=== PATIENT | female | born 1940 | race African-American/Black ===

== ENCOUNTER 2020-02-26 01:45 | Outpatient (CLI) | payer MEDICARE, SELFPAY ==
[2020-02-26 19:19] LABS: SARS-CoV-2 RNA PCR Negative
== END 2020-02-26 01:46 | disposition home or self-care (01) ==
PROVIDERS: PCP Internal Medicine Infectious Disease; Visit Provider Urology
DX: Z01.812 Encounter for preprocedural laboratory examination (principal); Z20.828 Contact with and (suspected) exposure to other viral communicable diseases
CPT/HCPCS: 87635; C9803; U0003

== ENCOUNTER 2020-02-26 09:00 | Outpatient (CLI) | payer MEDICARE, SELFPAY ==
--- NOTE | 2020-02-26 08:30 | ECG_ITS ---
Measurements Intervals [place] Rate: 68 P: 30 MN: 167 QRS: 5 QRSD: 75 T: -14 QT: 391 QTc: 417 Interpretive Statements SINUS RHYTHM DELAYED PRECORDIAL R/S TRANSITION BORDERLINE ST-T WAVE ABNORMALITY- ANTEROLAT/INF LEADS BORDERLINE ECG Electronically Signed On 02-26-2020 9:45:12 CDT by Seb Ramirez D.O.
== END 2020-02-26 09:01 | disposition home or self-care (01) ==
LOC: ANHSURGERY 09:13
PROVIDERS: PCP Internal Medicine Infectious Disease; Visit Provider Urology
DX: Z01.812 Encounter for preprocedural laboratory examination (principal); Z01.810 Encounter for preprocedural cardiovascular examination; I25.10 Atherosclerotic heart disease of native coronary artery without angina pectoris; R94.31 Abnormal electrocardiogram [ECG] [EKG]
CPT/HCPCS: 87086; 87635; 93005; C9803; U0003

== ENCOUNTER 2020-02-28 00:12 | Day surgery (SDC) | payer MEDICARE, SELFPAY ==
--- NOTE | 2020-02-22 11:27 | P.HP_ITS ---
H&P: HPI History of Present Illness Date/Time: 02/22/20 11:27 Chief complaint: Cystocele Narrative: Chata Matias is a 79 year old female with a cystocele and SWETA Review of Systems Review of Systems: All systems reviewed & are unremarkable except as noted in HPI and below [facility] Social History Social History Smoking status: Never smoker Alcohol intake: never Meds Home Medications and Allergies Allergies Allergy/AdvReac Type Severity Reaction Status Date / Time NACOTICS Allergy Mild NAUSEA AND Uncoded 01/28/05 09:59 VOMITING OPIATEAGONISTS Allergy Unknown NAUSEA & Uncoded 09/03/08 13:41 VOMITING Exam Const: General: no acute distress HENMT: Mouth: Yes moist mucous membranes Eyes: General: appearance normal, both eyes and all related structures Neck: Neck: supple Resp: Effort & Inspection: normal respiratory effort GI: GI Palp: Yes Soft to palpation : Other: cystocele to introitus Skin: General skin exam: no rashes or lesions noted Neuro: Speech: normal speech Extrem: General: normal to inspection Psych: Mental Status: mental status grossly normal Assessment and Plan Assessment and plan (1) Cystocele: Status: Acute Assessment and Plan: cystocele repair (2) SWETA (stress urinary incontinence, female): Code(s): N39.3 - Stress incontinence (female) (male) Status: Acute Assessment and Plan: urethral sling
[2020-02-25 15:26] VITALS: BMI 39.0
--- NOTE | 2020-02-27 10:51 | WPDANESEPPF ---
Anes - Initial Pre Proc Eval Procedure: Operation Date: 02/28/20 11:00 Proposed Procedures p Cystocele Repair - Inder Morris MD s Urethral Sling - Inder Morris MD Date/Time: 02/27/20 10:51 Surgeon: Inder Morris MD Pre Op Diagnosis: Cystocele Patient Data Age: 79 Gender: F Height: 1.6 m Weight: 100 kg Allergies Allergy/AdvReac Type Severity Reaction Status Date / Time No Known Allergies Allergy Verified 02/25/20 15:20 Home Medications Medication Instructions Recorded Confirmed Type acetaminophen-codeine 1 tablet PO BID PRN 02/25/20 02/28/20 History metoprolol tartrate 25 mg PO QAM 02/25/20 02/28/20 History pantoprazole 40 mg PO QAM 02/25/20 02/28/20 History Patient hx anesthesia problems: none Family hx anesthesia problems: none [facility] Past Medical History Medical History (Updated 02/27/20 @ 10:51 by Faizan Gomez DO) GERD (gastroesophageal reflux disease) Osteoarthritis Surgical History Surgical History (Updated 02/27/20 @ 10:51 by Faizan Gomez DO) History of hysterectomy Social History Social History Smoking status: Never smoker Second hand tobacco smoke exposure: No Alcohol intake: current Drinks per week: 7 Alcohol use details: 1/2 GLASS WINE NIGHTLY Substance use: never Living arrangements: with family Spiritual care concerns: No Anes - Eval Final PreProcedure Day of Procedure 02/27/20 10:51 Patient weight: obese Heart: regular rate and rhythm Lungs: clear to auscultation and normal air movement Airway: Mallampati scale class III Neurological: alert and oriented Last oral intake: >/= 8 hours ASA classification: III Emergent: no Anesthetic plan: proceed Anesthesia type and monitoring: general LMA and standard monitoring Informed Consent: The patient's anesthetic plan and its attendant risks and benefits were discussed with the patient/family/POA. Questions were solicited and answers provided to the satisfaction of the patient/family/POA.
--- NOTE | 2020-02-28 07:28 | WPDHPUPDATE1 ---
History and Physical Update Update Date/Time: 02/28/20 07:28 History and Physical has been reviewed, including an updated exam of the patient. There are NO changes in the patient's condition. Risks, benefits, and alternatives have been discussed and questions answered. Patient agrees to proceed with procedure.
[2020-02-28 08:38] VITALS: BP 169/83; PULSE 67; RESP 16; TEMP 36.4; O2SAT 99
[2020-02-28] MEDS: LACTATED RINGERS 1,000 ML 30 ML IV CONT (08:54)
--- NOTE | 2020-02-28 10:53 | SUR.PREOP ---
Patient and Dr Morris agreed that she doesn't need surgery. Discharged home.
--- NOTE | 2020-03-08 15:33 | PM.PROC ---
Procedure Note - Detailed Date of procedure: 03/08/20 Pre-op diagnosis: Cystocele Procedure performed: surgery canceld per pt request Surgeon: Inder Morris MD
== END 2020-02-28 10:55 | disposition home or self-care (01) ==
PROVIDERS: PCP Internal Medicine Infectious Disease; Visit Provider Urology
PROC: (CPT 57240; principal; 2020-02-28 11:00)
DX: N81.10 Cystocele, unspecified (principal); N39.3 Stress incontinence (female) (male); Z53.9 Procedure and treatment not carried out, unspecified reason
CPT/HCPCS: A9270; J2250; J3010; J7120

== ENCOUNTER 2024-08-09 14:56 | Outpatient (CLI) | payer MEDICARE, SELFPAY ==
--- OUTSIDE RECORDS SUMMARY | 2024-08-09 15:10 | XMS_ITS | Referral Summary ---
Author Organization [facility] Address [facility] [place] [address] Care Team Providers Care Android Programmer Name Role Phone Wilfrid Mulligan MD Primary Care Provider Mallory Mosher MD Unavailable [phone] Cara Nazario MD Unavailable [phone] Juan Morris MD Unavailable Encounters Date Type Department Care Team Description 07/12/2024 1:45 PM MOVE COORDINATOR Office Visit [facility] [address] [place] [address] Wilfrid Mulligan MD Upper respiratory tract infection, unspecified type (Primary Dx); Essential hypertension; Urinary incontinence, unspecified type; Influenza A 07/10/2024 Telephone [facility] Medical [facility] [address] [place] [address] Wilfrid Mulligan MD Side of face from Last 3 Months Allergies Active Allergy Reactions Criticality Noted Date Comments Influenza Virus Vaccines Other (See comments) Low 06/30/2017 Pt states developed Nausea and Fever. Medications VITAMIN B COMPLEX (B COMPLEX-VITAMIN B12 ORAL) Take 1,000 mcg/day by mouth every other day Active VITAMIN E ACETATE (VITAMIN E ORAL) Take 400 Int'l Units by mouth every other day Active CALCIUM CARBONATE (CALCIUM 600 ORAL) Take 600 mg by mouth every other day Active potassium 99 mg tablet Take 1 tablet (99 mg total) by mouth every other day Active pantoprazole DR (PROTONIX) 40 mg EC tablet Take 1 tablet (40 mg total) by mouth daily 90 tablet 4 05/01/20 25 Active metoprolol XL (TOPROL-XL) 25 mg extended release tablet Take 1 tablet (25 mg total) by mouth daily 90 tablet 4 Active guaiFENesin ER (MUCINEX) 600 mg 12 hr tablet Take 1 tablet (600 mg total) by mouth 2 (two) times a day 60 tablet 4 Active acetaminophen-co deine (TYLENOL with CODEINE #3) 300-30 mg per tabletIndication s:Pain Take 1 tablet by mouth every 6 (six) hours as needed for pain 30 tablet 4 Active azelastine (ASTELIN) 137 mcg (0.1 %) nasal sprayIndications :Upper respiratory tract infection, unspecified type Administer 1 spray into each nostril 2 (two) times a day Use in each nostril as directed 30 mL 5 Active oseltamivir (TAMIFLU) 75 mg capsule Take 1 capsule (75 mg total) by mouth 2 (two) times a day for 5 days 10 capsule 5 07/17/19 25 Active Problems Problem Noted Date Diagnosed Date Influenza A 07/12/2024 Assessment & Plan (07/12/2024 12:34 PM MOVE COORDINATOR): POSITIVE FOR FLU A TODAY DID NOT GET THE VACCINE TAMIFLU 75 MG PO BID FOR FIVE DAYS CONTINUE MUCINEX AND PERLES PRN Chronic fatigue 03/25/2024 Assessment & Plan (03/25/2024 12:00 PM MOVE COORDINATOR): H/O ANEMIA BUT CBC IS NL HB OF 12 ARRANGE B12 / TSH AND VIT D LEVELS Melena 05/05/2022 Assessment & Plan (05/06/2022 4:28 PM MOVE COORDINATOR): Intermittently over the last 3 days. No acute findings on exam but seracult was positive. Will check CBC. Increase Pantoprazole to BID. REFER to GI for further evaluation. Low acid diet, stay hydrated. Call or go to ER with any changes. Keep follow as scheduled in september, sooner if needed. Cystocele, midline 09/02/2020 Encounter for Medicare annual wellness exam 11/2018 Assessment & Plan (10/19/2023 7:22 PM CDT): IMMUNIZATIONS WERE REVIEWED H/O CAD : ON BABY ASA PLUS BETA NAKUL GERD WITH H/O GI BLEED ON PROTONIX 40 MGP O QDAY OA OF THE BACK AND KNEES ON TYLENOL WITH CODIENE LABS WERE REVIEWED ESSENTIAL HYPERTENSION : GOAL IS 130/80 OR LESS LOW NA DIET CONTINUE BETA NAKUL Gastrointestinal hemorrhage associated with intestinal diverticulosis 04/21/2017 Assessment & Plan (03/12/2019 6:17 PM CDT): Suspect this is the cause of the patient's GI bleeding based on the apparent self-limited nature of this painless bleed (no BMs since admission) and history of diverticulosis. GI consulted. H/H q8 overnight. Assessment & Plan (07/19/2017 10:05 AM MOVE COORDINATOR): She is doing better, no more blood in stools after she left hospital Assessment & Plan (06/30/2017 7:43 PM MOVE COORDINATOR): We are going to proceed with colonoscopy tomorrow, bowel prep now Assessment & Plan (07/01/2017 1:39 PM MOVE COORDINATOR): This is a recurrent issue. Most likely related to diverticular bleed. Continue supportive care, IV fluids, Protonix drip, monitor H&H every 6 hours and transfuse as needed. Gastroenterology consultation obtained. Total of 3 units of packed RBCs transfused for this admission. Hemoglobin today 7.0. Last night with colonoscopy preparation patient had some a pink watery diarrhea. Atherosclerosis of [place] coronary artery 2013 Overview (08/24/2016): CAD (coronary artery disease) Assessment & Plan (03/25/2024 11:59 AM MOVE COORDINATOR): CHRONIC AND STABLE NO CHEST PAIN OR SOB Osteoarthritis 10/05/2013 Overview (08/25/2016): Osteoarthritis Assessment & Plan (03/12/2019 6:18 PM CDT): Tylenol p.r.n. Essential hypertension 10/05/2013 Overview (08/26/2016): Hypertension Assessment & Plan (03/25/2024 11:59 AM MOVE COORDINATOR): GOAL BP IS 130/80 OR UNDER LOW NA DIET Assessment & Plan (05/06/2022 4:25 PM MOVE COORDINATOR): BP stable in office today on current therapy. No acute exam findings. Continue current regimen and low salt diet. Assessment & Plan (03/12/2019 6:17 PM CDT): Continue home Toprol-XL. Anemia 10/05/2013 Overview (08/26/2016): Anemia Assessment & Plan (06/21/2022 2:45 PM MOVE COORDINATOR): Return if anemia worsens and there is blood in the stool Assessment & Plan (05/06/2022 4:24 PM MOVE COORDINATOR): No acute findings on exam. Continue iron supplement. Will re-check CBC. Refer to GI for rectal bleeding. Increase pantoprazole to BID. Encouraged low acid diet. Call with any changes or concerns. Follow in September as scheduled, sooner if needed. Assessment & Plan (03/25/2019 10:21 AM MOVE COORDINATOR): Wanted to get iron and ferritin levels today to check. Pt refused and said she doesn't have anymore blood to give and does not want a blood test. She says she is supposed to see Dr. Mulligan in 1 week and says she will get labs done at this time. I will add iron and ferritin in with this lab so we can get them all at the same time. Pt says her PCP is following her anemia. Encouraged her to follow closely with him since last hgb slightly lower than at discharge and to call right away if she has signs of GIB again. Pt verbalized understanding. Adnexal mass Assessment & Plan (06/30/2017 11:07 AM MOVE COORDINATOR): The patient is aware of her right-sided adnexal cyst/mass and has an appointment with OBGYN coming this month. She will keep her appointment and see a specialist for recommendations. Resolved Problems Problem Noted Date Diagnosed Date Resolved Date Volume depletion 06/30/2017 05/05/2022 Assessment & Plan (06/30/2017 11:08 AM MOVE COORDINATOR): The patient has low blood pressure due to blood loss. Will continue IV fluids and monitor closely. Helicobacter pylori infection 05/24/2017 05/05/2022 Assessment & Plan (07/19/2017 10:06 AM MOVE COORDINATOR): Repeat EGD showed eradication of h pylori after she completed treatment Assessment & Plan (07/01/2017 1:38 PM MOVE COORDINATOR): She completed that treatment of H pylori per Dr. Miller. Assessment & Plan (06/30/2017 7:43 PM MOVE COORDINATOR): Completed treatment egd tomorrow and will take more biopsies to make sure of eradication Acute blood loss anemia 04/21 Assessment & Plan (07/19/2017 10:05 AM MOVE COORDINATOR): On iron supplement, related to recent LGIB due to diverticular bleeding Monitor h/h as outpatient Assessment & Plan (06/30/2017 7:30 PM MOVE COORDINATOR): Keep hb above 7 Patient is agreeable to proceed with egd and colonoscopy tomorrow Iv protonix for now and monitor hb Assessment & Plan (06/30/2017 11:05 AM MOVE COORDINATOR): Patient's baseline hemoglobin is 10.2, hematocrit 33.7. Today her hemoglobin is 7.6, hematocrit 23.8. Will discontinue aspirin follow H&H every 6 hours and transfuse as needed. Immunizations Immunization Administration Dates Next Due Influenza, Unspecified 03/25/2024(Deferr ed: Patient Refused),03/13/2023(Deferred: Patient Refused) Pfizer SARS-CoV-2 Monovalent Vaccination (12+ Yrs) PURPLE 03/10/2021,07/23/2020,06/29/2020 Tdap 11/06/2013 Social History Tobacco Use Types Packs/Day Years Used Date Smoking Tobacco: Never Smokeless Tobacco: Never Tobacco Cessation:Counseling Given: Not Answered Alcohol Use Standard Drinks/Week Comments No 0 (1 standard drink = 0.6 oz pur e alcohol) AUDIT-C Answer Date Recorded Q1: How often do you have a drink containing alcohol? Never 06/03/2022 Q2: How many drinks containi ng alcohol do you have on a typical day when you are drinking? Patient does not drink Q3: How often do you have si x or more drinks on one occasion? Never 06/03/2022 PHQ-2 Answer Date Recorded PHQ-2 Total Score (If total score is 3 or more points, staff should administer the PHQ-9) 0 10/17/2023 Personal Safety Answer Date Recorded Getting School Help Needed Denies 05/07 Comments No Sex and Gender Information Value Date Recorded Sex Assigned at Not on file Legal Sex Female 4:49 PM MOVE COORDINATOR Gender Identity Not on file Sexual Orientation Not on file Occupation Industry Job Start Date Job End Date Retired Not on file Not on file Not on file Last Filed Vital Signs Vital Sign Reading Time Taken Comments Blood Pressure 132/80 07/12/2024 10:00 AM MOVE COORDINATOR Pulse 95 07/12/2024 10:00 AM MOVE COORDINATOR Temperature 36.7 C (98 F) 07/12/2024 10:00 AM MOVE COORDINATOR Respiratory Rate 18 07/12/2024 10:00 AM MOVE COORDINATOR Oxygen Saturation 95% 07/12/2024 10:00 AM MOVE COORDINATOR Inhaled Oxygen Concentration - - Weight 93.5 kg (206 lb 3.2 oz) 07/12/2024 10:00 AM MOVE COORDINATOR Height 157.5 cm (5' 2 ) 07/12/2024 10:00 AM MOVE COORDINATOR Body Mass Index 37.71 07/12/2024 10:00 AM MOVE COORDINATOR Plan of Treatment Not on file Procedures Procedure Name Priority Date/Time Associated Diagnosis Comments POC INFLUENZA A/B, COVID-19 ANTIGEN Routine 07/12/2024 10:11 AM MOVE COORDINATOR Upper respiratory tract infection, unspecified type from Last 3 Months Results * (ABNORMAL) POC Influenza A/B, COVID-19 antigen (07/12/2024 10:11 AM MOVE COORDINATOR) Influenza A Ag, POC Positive(A) Negative [facility] Influenza B Ag, POC Negative Negative [facility] COVID-19 Ag POC Presumptive Negative Presumptive Negative, Invalid [facility] Nasal 07/12/2024 10:1 1 AM MOVE COORDINATOR Wilfrid Mulligan MD POINT OF CARE TEST ORDERAB LES Final Result [facility] [address] [place] [phone], [facility] from Last 3 Months Insurance MEDICARE [facility] MEDICARE [facility] UHC MEDICARE ADVANTAGE [facility]IC[facility] Address: [address] [address] [place] [address] Advance Directives For more information, please contact: [phone] * Full Code (Latest Code Status on File) Date Activated Date Inactivated Comments 03/12/2019 2:44 PM 03/14/2019 4:31 PM * Full Code Date Activated Date Inactivated Comments 07/01/2017 11:30 AM 07/02/2017 9:16 PM * Full Code Date Activated Date Inactivated Comments 06/30/2017 6:04 AM 07/01/2017 11:30 AM * Full Code Date Activated Date Inactivated Comments 04/21/2017 3:52 PM 04/23/2017 6:21 PM Care Teams Android Programmer Relationship Specialty Start Date End Date Wilfrid Mulligan MD [address] [id number] PCP - General 08/19/16 Mallory Mosher MD [address] [id number] Consulting Physician Gastroenterology 03/14/19 Cara Nazario MD [address] [address] [employer] Iam Consultant Obstetrics and Gynecology 10/01/19 [place] [id number] [address] Consulting Physician Urology 04/06/20
--- OUTSIDE RECORDS SUMMARY | 2024-08-09 15:10 | XMS_ITS | Clinical Summary ---
Author Organization [facility] Address [facility] [place] [address] Care Team Providers Care Director Pharmaceutical Name Role Phone Ese Wilfrid Gutierrez MD Primary Care Provider [phone] Mallory Mosher MD Unavailable [phone] Cara Nazario MD Unavailable [phone] Juan Morris MD Unavailable Allergies Active Allergy Reactions Criticality Noted Date [...] 07/12/2024 Assessment & Plan (07/12/2024 12:34 PM AMMONIUM NITRATE CRYSTALLIZER): POSITIVE FOR FLU A TODAY DID NOT GET THE VACCINE TAMIFLU 75 MG PO BID FOR FIVE DAYS CONTINUE MUCINEX AND PERLES PRN Chronic fatigue 03/25/2024 Assessment & Plan (03/25/2024 12:00 PM AMMONIUM NITRATE CRYSTALLIZER): H/O ANEMIA BUT CBC IS NL HB OF 12 ARRANGE B12 / TSH AND VIT D LEVELS Melena 05/05/2022 Assessment & Plan (05/06/2022 4:28 PM AMMONIUM NITRATE CRYSTALLIZER): Intermittently over the last 3 days. No [...] overnight. Assessment & Plan (07/19/2017 10:05 AM AMMONIUM NITRATE CRYSTALLIZER): She is doing better, no more blood in stools after she left hospital Assessment & Plan (06/30/2017 7:43 PM AMMONIUM NITRATE CRYSTALLIZER): We are going to proceed with colonoscopy tomorrow, bowel prep now Assessment & Plan (07/01/2017 1:39 PM AMMONIUM NITRATE CRYSTALLIZER): This is a recurrent issue. Most likely related to diverticular bleed. Continue supportive care, IV fluids, Protonix drip, monitor H&H every 6 hours and transfuse as needed. Gastroenterology consultation obtained. Total of 3 units of packed RBCs transfused for this admission. Hemoglobin today 7.0. Last night with colonoscopy preparation patient had some a pink watery diarrhea. Atherosclerosis of [place] coronary artery 2013 Overview (08/24/2016): CAD (coronary artery disease) Assessment & Plan (03/25/2024 11:59 AM AMMONIUM NITRATE CRYSTALLIZER): CHRONIC AND STABLE NO CHEST PAIN OR SOB Osteoarthritis 10/05/2013 Overview (08/25/2016): Osteoarthritis Assessment & Plan (03/12/2019 6:18 PM CDT): Tylenol p.r.n. Essential hypertension 10/05/2013 Overview (08/26/2016): Hypertension Assessment & Plan (03/25/2024 11:59 AM AMMONIUM NITRATE CRYSTALLIZER): GOAL BP IS 130/80 OR UNDER LOW NA DIET Assessment & Plan (05/06/2022 4:25 PM AMMONIUM NITRATE CRYSTALLIZER): BP stable in office today on current therapy. No acute exam findings. Continue current regimen and low salt diet. Assessment & Plan (03/12/2019 6:17 PM CDT): Continue home Toprol-XL. Anemia 10/05/2013 Overview (08/26/2016): Anemia Assessment & Plan (06/21/2022 2:45 PM AMMONIUM NITRATE CRYSTALLIZER): Return if anemia worsens and there is blood in the stool Assessment & Plan (05/06/2022 4:24 PM AMMONIUM NITRATE CRYSTALLIZER): No acute findings on exam. Continue iron supplement. Will re-check CBC. Refer to GI for rectal bleeding. Increase pantoprazole to BID. Encouraged low acid diet. Call with any changes or concerns. Follow in September as scheduled, sooner if needed. Assessment & Plan (03/25/2019 10:21 AM AMMONIUM NITRATE CRYSTALLIZER): Wanted to get iron and ferritin levels [...] mass Assessment & Plan (06/30/2017 11:07 AM AMMONIUM NITRATE CRYSTALLIZER): The patient is aware of her right-sided adnexal cyst/mass and has an appointment with OBGYN coming this month. She will keep her appointment and see a specialist for recommendations. Resolved Problems Problem Noted Date Diagnosed Date Resolved Date Volume depletion 06/30/2017 05/05/2022 Assessment & Plan (06/30/2017 11:08 AM AMMONIUM NITRATE CRYSTALLIZER): The patient has low blood pressure due to blood loss. Will continue IV fluids and monitor closely. Helicobacter pylori infection 05/24/2017 05/05/2022 Assessment & Plan (07/19/2017 10:06 AM AMMONIUM NITRATE CRYSTALLIZER): Repeat EGD showed eradication of h pylori after she completed treatment Assessment & Plan (07/01/2017 1:38 PM AMMONIUM NITRATE CRYSTALLIZER): She completed that treatment of H pylori per Dr. Miller. Assessment & Plan (06/30/2017 7:43 PM AMMONIUM NITRATE CRYSTALLIZER): Completed treatment egd tomorrow and will take more biopsies to make sure of eradication Acute blood loss anemia 04/21 Assessment & Plan (07/19/2017 10:05 AM AMMONIUM NITRATE CRYSTALLIZER): On iron supplement, related to recent LGIB due to diverticular bleeding Monitor h/h as outpatient Assessment & Plan (06/30/2017 7:30 PM AMMONIUM NITRATE CRYSTALLIZER): Keep hb above 7 Patient is agreeable to proceed with egd and colonoscopy tomorrow Iv protonix for now and monitor hb Assessment & Plan (06/30/2017 11:05 AM AMMONIUM NITRATE CRYSTALLIZER): Patient's baseline hemoglobin is 10.2, hematocrit 33.7. Today her hemoglobin is 7.6, hematocrit 23.8. Will discontinue aspirin follow H&H every 6 hours and transfuse as needed. Encounters Date Type Department Care Team Description 07/12/2024 1:45 PM AMMONIUM NITRATE CRYSTALLIZER Office Visit [facility] [address] [place] [address] Wilfrid Mulligan MD Upper respiratory tract infection, unspecified type (Primary Dx); Essential hypertension; Urinary incontinence, unspecified type; Influenza A 07/10/2024 Telephone [facility] [address] [place] [address] Wilfrid Mulligan MD Side of face from Last 3 Months Immunizations Immunization Administration Dates Next Due Influenza, Unspecified 03/25/2024(Deferr ed: Patient Refused),03/13/2023(Deferred: Patient Refused) Pfizer SARS-CoV-2 Monovalent Vaccination (12+ Yrs) PURPLE 03/10/2021,07/23/2020,06/29/2020 Tdap 11/06/2013 Surgical History Surgery Date Site/Laterality Comments KNEE ARTHROPLASTY 05/22/2010 - 05/21/2011 Knee replacement ANKLE ARTHROSCOPY W/ OPEN REPAIR TOTAL ABDOMINAL HYSTERECTOMY 05/22/1974 - 05/21/1975 COLONOSCOPY Medical History Medical History Date Comments Diverticulosis Anemia Family History Medical History Relation Name Comments Other Other Family history of arthritis - grandmother; Relation Name Status Comments Other Social History Tobacco Use Types Packs/Day Years [...] on file Legal Sex Female 4:49 PM AMMONIUM NITRATE CRYSTALLIZER Gender Identity Not on file Sexual Orientation Not on file Occupation Industry Job Start Date Job End Date Retired Not on file Not on file Not on file Obstetrics History Para Term AB IAB SAB Ectopic Multiple Livin g Live Births 1 1 1 0 0 1 1 Date Outcome GA Total Labor Labor/2nd/3rd Weight Sex Type Anes PTL Kayla A1 A5 Name Clin 1966 Term 3.402 kg (7 lb 8 oz) M Vag-S pont Living Last Filed Vital Signs Vital Sign Reading Time Taken Comments Blood Pressure 132/80 07/12/2024 10:00 AM AMMONIUM NITRATE CRYSTALLIZER Pulse 95 07/12/2024 10:00 AM AMMONIUM NITRATE CRYSTALLIZER Temperature 36.7 C (98 F) 07/12/2024 10:00 AM AMMONIUM NITRATE CRYSTALLIZER Respiratory Rate 18 07/12/2024 10:00 AM AMMONIUM NITRATE CRYSTALLIZER Oxygen Saturation 95% 07/12/2024 10:00 AM AMMONIUM NITRATE CRYSTALLIZER Inhaled Oxygen Concentration - - Weight 93.5 kg (206 lb 3.2 oz) 07/12/2024 10:00 AM AMMONIUM NITRATE CRYSTALLIZER Height 157.5 cm (5' 2 ) 07/12/2024 10:00 AM AMMONIUM NITRATE CRYSTALLIZER Body Mass Index 37.71 07/12/2024 10:00 AM AMMONIUM NITRATE CRYSTALLIZER Plan of Treatment Health Maintenance Due Date Last Done Comments Osteoporosis Screening-Bone Density Scan 1940 Hepatitis B Screening 1958 Pneumococcal vaccine 65+ (1 of 1 - PCV) 1990 Zoster Vaccine (1 of 2) 1990 DTaP/Tdap/Td Vaccine (2 - Td or Tdap) 11/07/2023 11/06/2013 Covid-19 Vaccine (4 - 2023-2 5 season) 2024 03/10/2021, 07/23/2020, 06/29/2020 Depression Screening 10/16/2024 10/17/2023, 04/19/2022, 04/12/2021, Additional history exists Fall Risk Assessment 10/16/2024 10/17/2023, 06/03/2022, 04/19/2022, Additional history exists Well Visit 65+ 10/16/2024 10/17/2023, 03/23, 04/06/2020, Additional history exists Influenza Vaccine Discontinued Procedures Procedure Name Priority Date/Time Associated Diagnosis Comments POC INFLUENZA A/B, COVID-19 ANTIGEN Routine 07/12/2024 10:11 AM AMMONIUM NITRATE CRYSTALLIZER Upper respiratory tract infection, unspecified type from Last 3 Months Results * (ABNORMAL) POC Influenza A/B, COVID-19 antigen (07/12/2024 10:11 AM AMMONIUM NITRATE CRYSTALLIZER) Influenza A Ag, POC Positive(A) Negative [facility] Influenza B Ag, POC Negative Negative [facility] COVID-19 Ag POC Presumptive Negative Presumptive Negative, Invalid [facility] IM [facility] 07/12/2024 10:1 1 AM AMMONIUM NITRATE CRYSTALLIZER Wilfrid Mulligan MD POINT OF CARE TEST ORDERAB LES Final Result [facility] [address] [place] [address], [facility] from Last 3 Months Insurance MEDICARE [facility] MEDICARE [facility] MEDICARE ADVANTAGE Advance Directives For more information, please contact: [phone] * Full Code (Latest Code Status on File) Date Activated Date Inactivated Comments 03/12/2019 2:44 PM 03/14/2019 4:31 PM * Full Code Date Activated Date Inactivated Comments 07/01/2017 11:30 AM 07/02/2017 9:16 PM * Full Code Date Activated Date Inactivated Comments 06/30/2017 6:04 AM 07/01/2017 11:30 AM * Full Code Date Activated Date Inactivated Comments 04/21/2017 3:52 PM 04/23/2017 6:21 PM Care Teams Director Pharmaceutical Relationship Specialty Start Date End Date Wilfrid Mulligan MD [address] [place] [address] PCP - General 08/19/16 Mallory Mosher MD [address] [place] [address] Consulting Physician Gastroenterology 03/14/19 Cara Nazario MD [address] [place] [address] Sustainability Engineer Obstetrics and Gynecology 10/01/19 [place] [id number] [address] Consulting Physician Urology 04/06/20
--- OUTSIDE RECORDS SUMMARY | 2024-08-09 15:10 | XMS_ITS | Encounter Summary ---
Author Organization [facility] Address [address] [place] [address] Care Team Providers Care Signals Collector/Analyst Name Role Phone Wilfrid Mulilgan MD Primary Care Provider [phone] Mallory Mosher MD Unavailable [phone] Cara Nazario MD Unavailable [phone] Juan Morris MD Unavailable [phone] Reason for Referral * Consultation (Routine) - Pending Review Specialty Diagnoses / Procedures Referred By Contlinda t Referred To Contact Urology Diagnoses Urinary incontinence, unspecified type Wilfrid Mulligan MD [address] [place] [address] Phone: tel: fax: [place] [address] [place] [address] Phone: tel: fax: Referral ID Status Reason Start Date Expiration Date Visits Requested Visits Authorized [id number] Pending Review Specialty Services Required 07/12/2024 08/11/2025 12 12 Question Answer Please select the performing region: External Order [171] To provider: TRMA GUSMAN [[id number]] # of visits: [address] TRAM GUSMAN [facility] AT [facility] ( OVER ACTIVE BLADDER / INCONTINENCE ) CBC Y EQUIPMENT OPERATING ENGINEER Reason for Visit * Reason Comments URI Encounter Details Date Type Department Care Team (Late st Contact Info) Description 07/12/2024 1:45 PM HEAVY EQUIPMENT OPERATING ENGINEER Office Visit [facility] [address] [place] [address] Wilfrid Mulligan MD [address] [place] [address] Upper respiratory tract infection, unspecified type (Primary Dx); Essential hypertension; Urinary incontinence, unspecified type; Influenza A Social History Tobacco Use Types Packs/Day Years [...] on file Legal Sex Female 4:49 PM HEAVY EQUIPMENT OPERATING ENGINEER Gender Identity Not on file Sexual Orientation Not on file Occupation Industry Job Start Date Job End Date Retired Not on file Not on file Not on file documented as of this encounter Last Filed Vital Signs Vital Sign Reading Time Taken Comments Blood Pressure 132/80 07/12/2024 10:00 AM HEAVY EQUIPMENT OPERATING ENGINEER Pulse 95 07/12/2024 10:00 AM HEAVY EQUIPMENT OPERATING ENGINEER Temperature 36.7 C (98 F) 07/12/2024 10:00 AM HEAVY EQUIPMENT OPERATING ENGINEER Respiratory Rate 18 07/12/2024 10:00 AM HEAVY EQUIPMENT OPERATING ENGINEER Oxygen Saturation 95% 07/12/2024 10:00 AM HEAVY EQUIPMENT OPERATING ENGINEER Inhaled Oxygen Concentration - - Weight 93.5 kg (206 lb 3.2 oz) 07/12/2024 10:00 AM HEAVY EQUIPMENT OPERATING ENGINEER Height 157.5 cm (5' 2 ) 07/12/2024 10:00 AM HEAVY EQUIPMENT OPERATING ENGINEER Body Mass Index 37.71 07/12/2024 10:00 AM HEAVY EQUIPMENT OPERATING ENGINEER documented in this encounter Patient Instructions * Patient Instructions* Wilfrid Mulligan MD - 07/12/2024 1:45 PM HEAVY EQUIPMENT OPERATING ENGINEER FLU A POSITIVE REFER TO DR TRAM GUSMAN [facility] AT [facility] ( OVER ACTIVE BLADDER / INCONTINENCE ) CBC CMP FLP NEXT VISIT Y EQUIPMENT OPERATING ENGINEER Y EQUIPMENT OPERATING ENGINEER documented in this encounter Ordered Prescriptions Prescription Sig Dispense Quantity Refills Last Filled Start Date End Date oseltamivir (TAMIFLU) 75 mg capsule Take 1 capsule (75 mg total) by mouth 2 (two) times a day for 5 days 10 capsule 07/12/2024 documented in this encounter Progress Notes * Wilfrid Mulligan MD - 07/12/2024 1:45 PM CST Images from the original note were not included. Chata Matias is a 83 y.o. year old Black Or Non- female here FOR 1. FLU A 2. OAB WITH INCONTINENCE ASSESSMENT AND PLAN: Diagnoses and all orders for this visit: Upper respiratory tract infection, unspecified type (Primary) - POC Influenza A/B, COVID-19 antigen Essential hypertension - CBC with auto differential; Future - Comprehensive metabolic panel; Future - Lipid panel; Future Urinary incontinence, unspecified type - Ambulatory referral to Urology; Future Influenza A Assessment & Plan: POSITIVE FOR FLU A TODAY DID NOT GET THE VACCINE TAMIFLU 75 MG PO BID FOR FIVE DAYS CONTINUE MUCINEX AND PERLES PRN Other orders - oseltamivir (TAMIFLU) 75 mg capsule; Take 1 capsule (75 mg total) by mouth 2 (two) times a day for 5 days HPI FLU A OVERACTIVE BLADDER WITH INCONTINENCE WOULD LIKE TO BE REFERRED Health Maintenance: DID NOT GET A FLU SHOT New Problems , #2 Allergies: Allergies Allergen Reactions Influenza Virus Vaccines Other (See comments) Pt states developed Nausea and Fever. Medication Changes today : TAMIFLU 75 MG PO BID FOR FIVE DAYS Procedures : FLU AND COVID SWAB Vitals: Vitals BP 132/80 (BP Location: Right arm, Patient Position: Sitting) Pulse 95 Temp 36.7 ??C (98 ??F) (Temporal) Resp 18 Ht 157.5 cm (5' 2 ) Wt 93.5 kg (206 lb 3.2 oz) SpO2 95% BMI 37.71 kg/m?? Body mass index is 37.71 kg/m??. Review of Systems: Review of Systems Constitutional: Negative. HENT: Negative. Respiratory: Positive for cough. Negative for apnea, choking and chest tightness. Genitourinary: Negative. Exam: Physical Exam Cardiovascular: Rate and Rhythm: Normal rate and regular rhythm. Pulmonary: Effort: Pulmonary effort is normal. Breath sounds: Normal breath sounds. Musculoskeletal: Cervical back: Normal range of motion and neck supple. Neurological: General: No focal deficit present. Mental Status: She is oriented to person, place, and time. Mental status is at baseline. LABS : Lab Results Component Value Date WBC 4.1 03/18/2024 HGB 12.0 03/18/2024 HCT 38.5 03/18/2024 MCV 91.9 03/18/2024 Lab Results Component Value Date GLUCOSE 97 03/18/2024 CALCIUM 9.8 03/18/2024 SODIUM 142 03/18/2024 POTASSIUM 4.3 03/18/2024 CO2 28 03/18/2024 CHLORIDE 104 03/18/2024 BUNSER 16 03/18/2024 CREATININE 0.91 03/18/2024 Care Team Providers: Wilfrid Mulligan MD Y EQUIPMENT OPERATING ENGINEER documented in this encounter Miscellaneous Notes * Addendum Note - Fito Nazario - 07/12/2024 1:45 PM CSTAddended by: FITO NAZARIO on: 08/09/2024 02:46 PM Modules accepted: Orders * Assessment & Plan Note - Wilfrid Mulligan MD - 07/12/2024 12:34 PM HEAVY EQUIPMENT OPERATING ENGINEER Associated Problem(s): Influenza A POSITIVE FOR FLU A TODAY DID NOT GET THE VACCINE TAMIFLU 75 MG PO BID FOR FIVE DAYS CONTINUE MUCINEX AND PERLES PRN Y EQUIPMENT OPERATING ENGINEER documented in this encounter Plan of Treatment Scheduled Orders Name Type Priority Associated Diagnoses Orde r Schedule CBC with auto differential Lab Routine Essential hypertension Expected: 07/12/2024, Expires: 07/12/2025 Comprehensive metabolic panel Lab Routine Essential hypertension Expected: 08/09/2024, Expires: 07/12/2025 Lipid panel Lab Routine Essential hypertension Expected: 08/09/2024, Expires: 07/12/2025 Scheduled Referrals Name Type Priority Associated Diagnoses Orde r Schedule Ambulatory referral to Urology Outpatient Referral Routine Urinary incontinence, unspecified type Expected: 07/12/2024 (Approximate), Expires: 07/12/2025 documented as of this encounter Procedures Procedure Name Priority Date/Time Associated Diagnosis Comments POC INFLUENZA A/B, COVID-19 ANTIGEN Routine 07/12/2024 10:11 AM HEAVY EQUIPMENT OPERATING ENGINEER Upper respiratory tract infection, unspecified type documented in this encounter Results * (ABNORMAL) POC Influenza A/B, COVID-19 antigen (07/12/2024 10:11 AM HEAVY EQUIPMENT OPERATING ENGINEER) Influenza A Ag, POC Positive(A) Negative [facility] IM Influenza B Ag, POC Negative Negative [facility] IM COVID-19 Ag POC Presumptive Negative Presumptive Negative, Invalid AMS [facility] IM Nasal 07/12/2024 10:1 1 AM HEAVY EQUIPMENT OPERATING ENGINEER Wilfrid Mulligan MD POINT OF CARE TEST ORDERAB LES Final Result [facility] [address] [place] [phone], [facility] documented in this encounter Visit Diagnoses Diagnosis Upper respiratory tract infection, unspecified type- Primary Essential hypertension Unspecified essential hypertension Urinary incontinence, unspecified type Influenza A Influenza with other respiratory manifestations documented in this encounter Additional Health Concerns Infection Onset Date Last Indicated Resolved Time Influenza, adult 07/12/2024 07/12/2024 07/19/2024 3:07 AM HEAVY EQUIPMENT OPERATING ENGINEER documented as of this encounter Care Teams Signals Collector/Analyst Relationship Specialty Start Date End Date Wilfrid Mulligan MD [address] [place] [address] PCP - General 08/19/16 Mallory Mosher MD [address] [place] [address] Consulting Physician Gastroenterology 03/14/19 Cara Nazario MD [address] [place] [address] Stripper Soft Plastic Obstetrics and Gynecology 10/01/19 [place] [address] [address] [place] [address] Consulting Physician Urology 04/06/20 documented as of this encounter
--- OUTSIDE RECORDS SUMMARY | 2024-08-09 15:10 | XMS_ITS | Encounter Summary ---
Author Organization [facility] Healthcare Address [address] [place] [address] Care Team Providers Care Chainstitch Binder Name Role Phone Wilfrid Mulligan MD Primary Care Provider [phone] Mallory Mosher MD Unavailable [phone] Cara Nazario MD Unavailable Juan Morris MD Unavailable Reason for Visit * Reason Onset Date Comments Side of face 07/10/2024 Encounter Details Date Type Department Care Team (Late st Contact Info) Description 07/10/2024 Telephone [facility] Medical Group [facility] [address] [place] [id number] Wilfrid Mulligan MD [address] [facility] [address] [place] [address] Side of face Social History Tobacco Use Types Packs/Day Years Used Date Smoking Tobacco: Never Smokeless Tobacco: Never Alcohol Use Standard Drinks/Week Comments No 0 [...] on file Legal Sex Female 4:49 PM ARSON AND BOMB INVESTIGATOR Gender Identity Not on file Sexual Orientation Not on file Occupation Industry Job Start Date Job End Date Retired Not on file Not on file Not on file documented as of this encounter Ordered Prescriptions Prescription Sig Dispense Quantity Refills Last Filled Start Date End Date azelastine (ASTELIN) 137 mcg (0.1 %) nasal sprayIndications:U pper respiratory tract infection, unspecified type Administer 1 spray into each nostril 2 (two) times a day Use in each nostril as directed 30 mL 07/10/2024 documented in this encounter Miscellaneous Notes * Addendum Note - Fito Nazario - 08/09/2024 2:45 PM CDTAddended by: FITO NAZARIO on: 08/09/2024 02:45 PM Modules accepted: Orders * Telephone Encounter - Tram Cruz RN - 07/10/2024 3:40 PM ARSON AND BOMB INVESTIGATOR No answer and unable to leave a message. Patient called back and was notified of previous message. She voiced understanding. She will get the CBC and UA on Monday when she comes for her appt. Lab orders placed. N AND BOMB INVESTIGATOR * Telephone Encounter - Tram Cruz RN - 07/10/2024 2:55 PM ARSON AND BOMB INVESTIGATOR No answer and unable to leave a message. N AND BOMB INVESTIGATOR * Telephone Encounter - Wilfrid Mulligan MD - 07/10/2024 2:25 PM ARSON AND BOMB INVESTIGATOR SHE CAN GO TO THE LAB AND DO A CBC AND UA C/S WHENEVER N AND BOMB INVESTIGATOR * Telephone Encounter - Tram Cruz RN - 07/10/2024 2:11 PM ARSON AND BOMB INVESTIGATOR TOTLQ: Called patient and notified her of previous message. She voiced understanding. Patient scheduled with TLQ on Monday. Also advised that she can get an OTC test for Covid and flu and call with results. Patient opted tojust come in on Monday. She was advised to wear a mask. Patient said she is also having another issue. She is having difficulty holding her urine and has to wear a pad. Denied any frequency or burning. Denied any hematuria. Patient said she does have some R side back discomfort. Symptoms started in the last day or 2. Please advise N AND BOMB INVESTIGATOR * Telephone Encounter - Wilfrid Mulligan MD - 07/10/2024 2:03 PM ARSON AND BOMB INVESTIGATOR It could be flu or covid or jusst a respiratory Ok to do astalin nasal spray bid Mucinex bid I can see her on monday N AND BOMB INVESTIGATOR * Telephone Encounter - Tram Cruz RN - 07/10/2024 1:37 PM ARSON AND BOMB INVESTIGATOR TOTLQ: Called patient about her symptoms. Symptoms started yesterday: Sneezing Eyes watery Runny nose L side of face puffy and aches into her throat L side of face is warm to touch Chills this am Headache over L eye Body aches Denied any congestion or respiratory issues. Patient does not have a home Covid test. Her is not home to bring her to the office right now. Please advise N AND BOMB INVESTIGATOR * Telephone Encounter - Fito Nazario - 07/10/2024 12:35 PM CST Pt called in because the left side of her face is swollen and sore. Pt is coughing and sneezing. Ptwoke up like this. Sore throat also. No fever but her face is warm. Pt's left ear is hurting all the way down her throat but only on that side. Pt took over the counter medication last night but doesn't know the name and said it just said cold and flu on it, pt stated it is not helping. Pt kept asking to talk to Dr. Mulligan directly. CBN: [phone] - pt stated let the phone ring because she is unable to get it right away Pharm: Rafita Sánchez N AND BOMB INVESTIGATOR documented in this encounter Plan of Treatment Scheduled Orders Name Type Priority Associated Diagnoses Orde r Schedule CBC with auto differential Lab Routine Acute right flank pain Urinary incontinence, unspecified type Expected: 08/11/2024, Expires: 07/10/2025 Urinalysis reflex to microscopic and culture Urine Microbiology Routine Acute right flank pain Urinary incontinence, unspecified type Expected: 08/11/2024, Expires: 07/10/2025 documented as of this encounter Visit Diagnoses Diagnosis Upper respiratory tract infection, unspecified type- Primary Acute right flank pain Urge incontinence of urine Urge incontinence Urinary incontinence, unspecified type documented in this encounter Additional Health Concerns Infection Onset Date Last Indicated Resolved Time COVID: Suspected 07/12/2024 07/12/2024 07/12/2024 10:25 AM ARSON AND BOMB INVESTIGATOR Influenza, adult 07/12/2024 07/12/2024 07/19/2024 3:07 AM ARSON AND BOMB INVESTIGATOR documented as of this encounter Care Teams Chainstitch Binder Relationship Specialty Start Date End Date Wilfrid Mulligan MD [address] [place] [address] PCP - General 08/19/16 Mallory Mosher MD [address] [place] [address] Consulting Physician Gastroenterology 03/14/19 Cara Nazario MD [address] [place] [address] Rn Surgery [facility] Obstetrics and Gynecology 10/01/19 [place] [address] [address] Consulting Physician Urology 04/06/20 documented as of this encounter
--- OUTSIDE RECORDS SUMMARY | 2024-08-09 15:10 | XMS_ITS | Clinical Summary ---
Author Organization [facility] Address [address] [place] [address] Care Team Providers Care Chef Broiler Or Fry Name Role Phone Wilfrid Mulligan MD Primary Care Provider [phone] [facility],non-owned Affiliates and Associated Physician Practices is amultiple site organization consisting of ambulatory clinics and hospital sitesin [place], [place], [place]. This disclosure is being madepursuant to the Care Everywhere program and may not contain all information available regarding this patient. Last updated 18.[facility] Allergies No known active allergies Medications * Be aware that medications may not be up to date on this document. Alwaysverify current medications with the patient. Medication Sig Dispensed Refills Start Date End Date Status METOPROLOL SUCCINATE ER PO Active Aspirin (ASPIR-81 PO) Act jeffrey Acetaminophen-Codeine (TYLENOL WITH CODEINE #3 PO) Active methylPREDNISolone (MEDROL DOSEPAK) 4 MG tablet Take by mouth as directed 1 Each 04/20/2016 Active Social History Tobacco Use Types Packs/Day Years Used Date Smoking Tobacco: Never Assessed Sex and Gender Information Value Date Recorded Sex Assigned at Not on file Gender Identity Not on file Sexual Orientation Not on file Last Filed Vital Signs Vital Sign Reading Time Taken Comments Blood Pressure 122/80 04/20/2016 2:18 PM COOK HELPER MEAT Pulse 78 04/20/2016 2:18 PM COOK HELPER MEAT Temperature 37 C (98.6 F) 04/20/2016 2:18 PM COOK HELPER MEAT Respiratory Rate - - Oxygen Saturation - - Inhaled Oxygen Concentration - - Weight 93.9 kg (207 lb) 04/20/2016 2:18 PM COOK HELPER MEAT Height 162.6 cm (5' 4 ) 04/20/2016 2:18 PM COOK HELPER MEAT Body Mass Index 35.53 04/20/2016 2:18 PM COOK HELPER MEAT Plan of Treatment Health Maintenance Due Date Last Done Comments BONE DENSITY TESTING 1940 MEDICARE AWV 12 MONTHS 1940 DTAP/TDAP/TD VACCINES (1 - Tdap) 09/30/1959 PNEUMOCOCCAL VACCINE 50+ (1 of 1 - PCV) 1990 ZOSTER VACCINE (1 of 2) 1990 Respiratory Syncytial Virus (RSV) Vaccine Pt: or over 60 yrs (1 - 1-dose 75+ series) 09/30/2015 COVID-19 VACCINE ( - 2023-2 5 season) 2024 INFLUENZA VACCINE (#1) 2024 DEPRESSION SCREENING 05/22/2024 HEPATITIS B VACCINE Aged Out No longe r eligible based on patient's age to complete this topic HIB VACCINE Aged Out No longer eligi ble based on patient's age to complete this topic HPV VACCINE Aged Out No longer eligi ble based on patient's age to complete this topic MENINGOCOCCAL (Group B) VACC INE SHARED DECISION-MAKING Aged Out No longer eligibl e based on patient's age to complete this topic MENINGOCOCCAL GROUPS A/C/Y/W VACCINE Aged Out No longer eligible b ased on patient's age to complete this topic Care Teams Chef Broiler Or Fry Relationship Specialty Start Date End Date Wilfrid Mulligan MD [address] [id number] (work) PCP - General Internal Medicine 04/20/16
[2024-08-09 15:27] LABS: Basophils Percent Auto 0.4 % (0.2-1.2); Eosinophils Absolute Auto 0.2 K/mm3 (0-0.3); Eosinophils Percent Auto 3.5 % (0-4.4); Hematocrit 38.6 % (37.0-47.0); Hemoglobin 12.5 g/dL (12.0-15.0); Immature Granulocyte Absolute 0.02 K/mm3 (0.00-0.031); Immature Granulocyte Percent A 0.4 % (0-0.5); Lymphocytes Absolute Auto 1.22 K/mm3 (0.9-3.2); Lymphocytes Percent Auto 23.7 % (18.3-44.2); Mean Corpuscular HGB Conc 32.4 g/dl (32-36); Mean Corpuscular Volume 92.8 fl (80-100); Mean Platelet Volume 11.1 fl (7.4-10.4); Monocytes Absolute Auto 0.7 K/mm3 (0.1-0.6); Monocytes Percent Auto 13.8 % (2.6-8.5); Neutrophils Percent Auto 58.2 % (45.5-73.1); Platelet Count Result 210 k/mm3 (150-375); Red Blood Count 4.16 M/mm3 (4.2-5.4); Red Cell Distribution Width 14.4 % (11.5-14.5); White Blood Count 5.2 K/mm3 (4.5-10.0)
[2024-08-09 15:34] LABS: Add Urine Microscopic? YES; Appearance Urine Clear (Clear); Bacteria Urine 4+ /hpf; Bilirubin Urine Negative (Negative); Blood Urine Negative (Negative); Color Urine Yellow (Yellow); Glucose Urine UA Negative (Negative); Ketones Urine Negative (Negative); Leukocyte Esterase Ur 2+ LEU/UL (Negative); Nitrate Urine Negative (Negative); Non Pathogenic Casts 0-2; Protein Urine Negative (Negative); RBC Urine 0-2 /hpf (0-2); Specific Grav Ur 1.012 (1.001-1.035); Squamous Epithelial Cell Urine Occasional /hpf (Few); Urobilinogen Urine 0.2 mg/dL (<2.0); WBC Urine 21-50 /hpf (0-3); pH Urine 5.5 (5.0-9.0)
[2024-08-09 15:39] LABS: Alanine Aminotransferase 14 U/L (6-35); Albumin Level 4.4 g/dL (3.5-5.1); Alkaline Phosphatase 93 U/L (38-126); Anion Gap 10 mmol/L (4-12); Aspartate Amino Transferase 27 U/L (14-36); Bilirubin,Total 0.5 mg/dL (0.2-1.3); Blood Urea Nitrogen 19 mg/dL (7-17); Calcium 10.2 mg/dL (8.4-10.2); Carbon Dioxide 29 mmol/L (22-30); Chloride 105 mmol/L (98-107); Cholesterol 212 mg/dL (0-200); Estimated Glomerular Filt Rate 51; Glucose 107 mg/dL (65-110); HDL Direct 58 mg/dL; Potassium 4.3 mmol/L (3.4-5.0); Sodium 144 mmol/L (137-145); Triglycerides 77 mg/dL (<150)
[2024-08-09 15:49] LABS: LDL Cholesterol Direct 88 mg/dL
== END 2024-08-09 14:57 | disposition home or self-care (01) ==
LOC: ANHLAB 15:05
PROVIDERS: PCP Internal Medicine Infectious Disease; Visit Provider Internal Medicine Infectious Disease
DX: R32 Unspecified urinary incontinence (principal); I10 Essential (primary) hypertension; R10.9 Unspecified abdominal pain
CPT/HCPCS: 36415; 80053; 80061; 81001; 85025; 87086; 87186

== ENCOUNTER 2025-01-26 13:08 | Emergency (ER) | payer MEDICARE, SELFPAY ==
--- OUTSIDE RECORDS SUMMARY | 2025-01-26 13:11 | XMS_ITS | Clinical Summary ---
Author Organization [facility] Address [facility] [place] [address] Care Team Providers Care R D Internship Name Role Phone Ese, Wilfrid Gutierrez MD Primary Care Provider [phone] Mallory Mosher MD Unavailable [phone] Cara Nazario MD Unavailable [phone] Juan Morris MD Unavailable [phone] Allergies Active Allergy Reactions Criticality Noted Date [...] mg total) by mouth daily 90 tablet 5 08/14/19 26 Active metoprolol XL (TOPROL-XL) 25 mg extended release tablet Take 1 tablet (25 mg total) by mouth daily 90 tablet 5 Active acetaminophen-c odeine (TYLENOL with CODEINE #3) 300-30 mg per tabletIndicatio ns:Pain Take 1 tablet by mouth every 6 (six) hours as needed for pain 30 tablet 5 Active acetaminophen-c odeine (TYLENOL with CODEINE #3) 300-30 mg per tabletIndicatio ns:Pain Take 1 tablet by mouth every 6 (six) hours as needed for pain 30 tablet 5 01/08/20 25 Discontinu ed(Reorder ) Active Problems Problem Noted Date Diagnosed Date Influenza A 07/12/2024 Assessment & Plan (07/12/2024 12:34 PM DIRECTOR WOMEN): POSITIVE FOR FLU A TODAY DID NOT GET THE VACCINE TAMIFLU 75 MG PO BID FOR FIVE DAYS CONTINUE MUCINEX AND PERLES PRN Chronic fatigue 03/25/2024 Assessment & Plan (03/25/2024 12:00 PM DIRECTOR WOMEN): H/O ANEMIA BUT CBC IS NL HB OF 12 ARRANGE B12 / TSH AND VIT D LEVELS Melena 05/05/2022 Assessment & Plan (05/06/2022 4:28 PM DIRECTOR WOMEN): Intermittently over the last 3 days. No [...] overnight. Assessment & Plan (07/19/2017 10:05 AM DIRECTOR WOMEN): She is doing better, no more blood in stools after she left hospital Assessment & Plan (06/30/2017 7:43 PM DIRECTOR WOMEN): We are going to proceed with colonoscopy tomorrow, bowel prep now Assessment & Plan (07/01/2017 1:39 PM DIRECTOR WOMEN): This is a recurrent issue. Most likely related to diverticular bleed. Continue supportive care, IV fluids, Protonix drip, monitor H&H every 6 hours and transfuse as needed. Gastroenterology consultation obtained. Total of 3 units of packed RBCs transfused for this admission. Hemoglobin today 7.0. Last night with colonoscopy preparation patient had some a pink watery diarrhea. Atherosclerosis of cheesh-na coronary artery 2013 Overview (08/24/2016): CAD (coronary artery disease) Assessment & Plan (08/13/2024 10:05 AM CDT): NO CHEST PAIN OR SOB ON BABY ASA Assessment & Plan (03/25/2024 11:59 AM DIRECTOR WOMEN): CHRONIC AND STABLE NO CHEST PAIN OR SOB Osteoarthritis 10/05/2013 Overview (08/25/2016): Osteoarthritis Assessment & Plan (03/12/2019 6:18 PM CDT): Tylenol p.r.n. Essential hypertension 10/05/2013 Overview (08/26/2016): Hypertension Assessment & Plan (08/13/2024 10:04 AM CDT): GOAL BP IS 130/80 OR LESS Assessment & Plan (03/25/2024 11:59 AM DIRECTOR WOMEN): GOAL BP IS 130/80 OR UNDER LOW NA DIET Assessment & Plan (05/06/2022 4:25 PM DIRECTOR WOMEN): BP stable in office today on current therapy. No acute exam findings. Continue current regimen and low salt diet. Assessment & Plan (03/12/2019 6:17 PM CDT): Continue home Toprol-XL. Anemia 10/05/2013 Overview (08/26/2016): Anemia Assessment & Plan (06/21/2022 2:45 PM DIRECTOR WOMEN): Return if anemia worsens and there is blood in the stool Assessment & Plan (05/06/2022 4:24 PM DIRECTOR WOMEN): No acute findings on exam. Continue iron supplement. Will re-check CBC. Refer to GI for rectal bleeding. Increase pantoprazole to BID. Encouraged low acid diet. Call with any changes or concerns. Follow in September as scheduled, sooner if needed. Assessment & Plan (03/25/2019 10:21 AM DIRECTOR WOMEN): Wanted to get iron and ferritin levels [...] mass Assessment & Plan (06/30/2017 11:07 AM DIRECTOR WOMEN): The patient is aware of her right-sided adnexal cyst/mass and has an appointment with OBGYN coming this month. She will keep her appointment and see a specialist for recommendations. Resolved Problems Problem Noted Date Diagnosed Date Resolved Date Volume depletion 06/30/2017 05/05/2022 Assessment & Plan (06/30/2017 11:08 AM DIRECTOR WOMEN): The patient has low blood pressure due to blood loss. Will continue IV fluids and monitor closely. Helicobacter pylori infection 05/24/2017 05/05/2022 Assessment & Plan (07/19/2017 10:06 AM DIRECTOR WOMEN): Repeat EGD showed eradication of h pylori after she completed treatment Assessment & Plan (07/01/2017 1:38 PM DIRECTOR WOMEN): She completed that treatment of H pylori per Dr. Miller. Assessment & Plan (06/30/2017 7:43 PM DIRECTOR WOMEN): Completed treatment egd tomorrow and will take more biopsies to make sure of eradication Acute blood loss anemia 04/21 Assessment & Plan (07/19/2017 10:05 AM DIRECTOR WOMEN): On iron supplement, related to recent LGIB due to diverticular bleeding Monitor h/h as outpatient Assessment & Plan (06/30/2017 7:30 PM DIRECTOR WOMEN): Keep hb above 7 Patient is agreeable to proceed with egd and colonoscopy tomorrow Iv protonix for now and monitor hb Assessment & Plan (06/30/2017 11:05 AM DIRECTOR WOMEN): Patient's baseline hemoglobin is 10.2, hematocrit 33.7. Today her hemoglobin is 7.6, hematocrit 23.8. Will discontinue aspirin follow H&H every 6 hours and transfuse as needed. Encounters Date Type Department Care Team Description 12/16/2024 Telephone [facility] Medical [facility] [address] [place] [address] Wilfrid Mulligan MD Dehydration; Bladder Issues from Last 3 Months Immunizations Immunization Administration [...] points, staff should administer the PHQ-9) 0 08/13/2024 Personal Safety Answer Date Recorded Getting School Help Needed Denies 05/07 Comments No Sex and Gender Information Value Date Recorded Sex Assigned at Not on file Legal Sex Female 4:49 PM DIRECTOR WOMEN Gender Identity Not on file Sexual Orientation [...] Sign Reading Time Taken Comments Blood Pressure 146/88 08/13/2024 9:52 AM CDT Pulse 77 08/13/2024 9:52 AM CDT Temperature 36.2 C (97.1 F) 08/13/2024 9:52 AM CDT Respiratory Rate 16 08/13/2024 9:52 AM CDT Oxygen Saturation 99% 08/13/2024 9:52 AM CDT Inhaled Oxygen Concentration - - Weight 94.8 kg (209 lb) 08/13/2024 9:52 AM CDT Height 157.5 cm (5' 2) 08/13/2024 9:52 AM CDT Body Mass Index 38.23 08/13/2024 9:52 AM CDT Plan of Treatment Health Maintenance Due Date Last Done Comments Hepatitis B Screening 1958 Pneumococcal vaccine 65+ (1 of 1 - PCV) 1990 Zoster Vaccine (1 of 2) 1990 DTaP/Tdap/Td Vaccine (2 - Td or Tdap) 11/07/2023 11/06/2013 Covid-19 Vaccine (4 - 2023-2 5 season) 2024 03/10/2021, 07/23/2020, 06/29/2020 Well Visit 65+ 10/16/2024 10/17/2023, 03/23, 04/06/2020, Additional history exists Depression Screening 08/13/2025 08/13/2024, 10/17/2023, 04/19/2022, Additional history exists Fall Risk Assessment 08/13/2025 08/13/2024, 10/17/2023, 06/03/2022, Additional history exists Osteoporosis Screening-Bone Density Scan 09/27/2026 09/27/2024 Influenza Vaccine Discontinued Procedures Procedure Name Priority Date/Time Associated Diagnosis Comments DEXA AXIAL SKELETON BONE DENSITY 1 OR MORE SITES Schedule Routine, Read Routine (OP Routine) 09/27/2024 1:33 PM CDT Menopause from Last 3 Months or Most Recently Relevant to Health Maintenance Results * Dexa Axial Skeleton Bone Density 1 or 2 Site (09/27/2024 1:33 PM CDT) Anatomical Region Laterality Modality Body N/A Other 2024 12:0 6 AM CDT Narrative 2024 12:08 AM CDT EXAM DESCRIPTION: DEXA AXIAL SKELETON BONE DENSITY 1 OR MORE SITES REASON FOR STUDY: 83 y/o year old F with given history of: menopause Osteoporosis screening Post menopausal Sugar Reprocess Operator Head/Model: youcalc (S/N [id number]) Facility LSC value of 0.022 for the AP spine, 0.027 for the femur, and 0.023 for the forearm. CLINICAL INFORMATION: Current height: 62 inches Maximum height: 64 inches Weight: 209 pounds Risk factors: Postmenopausal, adult fracture COMPARISON: None available FINDINGS: AP LUMBAR SPINE L1-L4: Total BMD is 1.328 g/cm2 T-score is 2.6 LEFT HIP: Total BMD is 1.006 g/cm2 T-score is 0.5 Femoral neck BMD is 0.850 g/cm2 T-score is 0.0 FRAX: FRAX not reported due to T-scores of hip, femoral neck and/or spine being at or above -1.0 (Normal). IMPRESSION: Normal bone mass. REFERENCE: Bone mineral density: T-Score: Normal (T-score above or = -1.0) Low bone mass (T-score between -1.0 and -2.5) replaces the previously used term osteopenia Osteoporosis (T-score = or below -2.5) Z-Score: Within the expected range for age (Z-score above -2.0) Below the expected range for age (Z-score is -2.0 or below) Please see below follow up recommendations. Medical evaluation for secondary causes of low bone mineral density may be appropriate. FRAX is a World Health Organization validated fracture risk assessment tool that calculates a person's 10 year probability of a major osteoporosis related fracture and hip fracture. According to the National Osteoporosis Foundation guidelines, postmenopausal women and men age 50 or older with low bone mass and a 10 year probability of a major osteoporosis related fracture = or greater than 20% or a 10 year probability of a hip fracture = or greater than 3% should be considered for pharmacological treatment for the prevention of osteoporosis. For further information, including treatment recommendations, please refer to the 2019 ISCD Official Positions (http://www.iscd.org) and the NOF's Clinician's Guide to Prevention and Treatment of Osteoporosis (http://www.nof.org/professionals/clinical-guidelines) THIS IS AN ELECTRONICALLY VERIFIED FINAL REPORT 2024 12:08 AM - Electronically signed by Orlando Wren M.D. MF: [email or web address] Report ID: [id number] Reading Location: [id number] Procedure Note Orlando Wren MD - 2024 EXAM DESCRIPTION: DEXA AXIAL SKELETON BONE DENSITY 1 OR MORE SITES REASON FOR STUDY: 83 y/o year old F with given history of: menopause Osteoporosis screening Post menopausal Sugar Reprocess Operator Head/Model: HoloSelectron Discovery SL (S/N [id number]) Facility LSC value of 0.022 for the AP spine, 0.027 for the femur, and0.023 for the forearm. CLINICAL INFORMATION: Current height: 62 inches Maximum height: 64 inches Weight: 209 pounds Risk factors: Postmenopausal, adult fracture COMPARISON: None available FINDINGS: AP LUMBAR SPINE L1-L4: Total BMD is 1.328 g/cm2 T-score is 2.6 LEFT HIP: Total BMD is 1.006 g/cm2 T-score is 0.5 Femoral neck BMD is 0.850 g/cm2 T-score is 0.0 FRAX: FRAX not reported due to T-scores of hip, femoral neck and/or spine beingat or above -1.0 (Normal). IMPRESSION: Normal bone mass. REFERENCE: Bone mineral density: T-Score: Normal (T-score above or = -1.0) Low bone mass (T-score between -1.0 and -2.5) replaces thepreviously used term osteopenia Osteoporosis (T-score = or below -2.5) Z-Score: Within the expected range for age (Z-score above -2.0) Below the expected range for age (Z-score is -2.0 or below) Please see below follow up recommendations. [facility] evaluation [facility] causes of low bone mineral density may be appropriate. FRAX is a World Health Organization validated fracture risk assessmenttool that calculates a person's 10 year probability of a major osteoporosisrelated fracture and hip fracture. According to the National OsteoporosisFoundation guidelines, postmenopausal women and men age 50 or older with low bonemass and a 10 year probability of a major osteoporosis related fracture = or greater than 20% or a 10 year probability of a hip fracture = or greaterthan 3% should be considered for pharmacological treatment for the preventionof osteoporosis. For further information, including treatment recommendations, please referto the 2019 ISCD Official Positions (http://www.iscd.org) and the NOF's Clinician's Guide to Prevention and Treatment of Osteoporosis (http://www.nof.org/professionals/clinical-guidelines) THIS IS AN ELECTRONICALLY VERIFIED FINAL REPORT 2024 12:08 AM - Electronically signed by Orlando Wren M.D. MF: [email or web address] Report ID: [id number] Reading Location: [place] [address] [facility] IMG DXA PROCEDURES Final R esult from Last 3 Months or Most Recently Relevant to Health Maintenance Insurance MEDICARE [facility] MEDICARE [facility] UHC MEDICARE ADVANTAGE Advance Directives For more information, please contact: [phone] * Full Code (Latest Code Status on File) Date Activated Date Inactivated Comments 03/12/2019 2:44 PM 03/14/2019 4:31 PM * Full Code Date Activated Date Inactivated Comments 07/01/2017 11:30 AM 07/02/2017 9:16 PM * Full Code Date Activated Date Inactivated Comments 06/30/2017 6:04 AM 07/01/2017 11:30 AM * Full Code Date Activated Date Inactivated Comments 04/21/2017 3:52 PM 04/23/2017 6:21 PM Care Teams R D Internship Relationship Specialty Start Date End Date Wilfrid Mulligan MD [address] [place] [address] PCP - General 08/19/16 Mallory Mosher MD [address] [place] [address] Consulting Physician Gastroenterology 03/14/19 Cara Nazario MD [address] [place] [address] Lock Technician Obstetrics and Gynecology 10/01/19 [place] [address] [address] Consulting Physician Urology 04/06/20
--- OUTSIDE RECORDS SUMMARY | 2025-01-26 13:11 | XMS_ITS | Clinical Summary ---
Author Organization [facility] Address [address] [place] [address] Care Team Providers Care Bobbin Cleaner Hand Name Role Phone Wilfrid Mulligan MD Primary Care Provider [phone] Source Comments [facility],non-owned Affiliates and Associated Physician Practices is amultiple site organization consisting of ambulatory clinics and hospital sitesin [place], [place], [place] and [place]. This disclosure is being madepursuant to the Care Everywhere program and may not contain all information available regarding this patient. Last updated 18.[facility] Allergies No known active allergies Medications * Be aware that medications may not be up to date on this document. Alwaysverify current medications with the patient. METOPROLOL SUCCINATE ER PO Acti ve Aspirin (ASPIR-81 PO) Active Acetaminophen-C odeine (TYLENOL WITH CODEINE #3 PO) Active methylPREDNISol one (MEDROL DOSEPAK) 4 MG tablet Take by mouth as directed 1 Each 04/20/2016 Active Social History Tobacco Use Types Packs/Day Years Used Date Smoking Tobacco: Never Assessed Comments Unknown Sex and Gender Information Value Date Recorded Sex Assigned at Not on file Legal Sex Female 2:02 PM DIVISION CONTRO[employer]ER Gender Identity Not on file Sexual Orientation Not on file Last Filed Vital Signs Vital Sign Reading Time Taken Comments Blood Pressure 122/80 04/20/2016 2:18 PM DIVISION CONTROLLER Pulse 78 04/20/2016 2:18 PM DIVISION CONTROLLER Temperature 37 C (98.6 F) 04/20/2016 2:18 PM DIVISION CONTROLLER Respiratory Rate - - Oxygen Saturation - - Inhaled Oxygen Concentration - - Weight 93.9 kg (207 lb) 04/20/2016 2:18 PM DIVISION CONTROLLER Height 162.6 cm (5' 4) 04/20/2016 2:18 PM DIVISION CONTROLLER Body Mass Index 35.53 04/20/2016 2:18 PM DIVISION CONTROLLER Plan of Treatment Health Maintenance Due Date Last Done Comments BONE DENSITY TESTING 1940 DTAP/TDAP/TD VACCINES (1 - Tdap) 09/30/1959 PNEUMOCOCCAL VACCINE 50+ (1 of 1 - PCV) 1990 ZOSTER VACCINE (1 of 2) 1990 Respiratory Syncytial Virus (RSV) Vaccine Pt: or over 60 yrs (1 - 1-dose 75+ series) 09/30/2015 DEPRESSION SCREENING 05/22/2024 COVID-19 VACCINE (1 - 2023-2 5 season) 2025 INFLUENZA VACCINE (#1) 2025 HEPATITIS B VACCINE Aged Out No longe [...] on patient's age to complete this topic Insurance MEDICARE [facility] MEDICARE Care Teams Bobbin Cleaner Hand Relationship Specialty Start Date End Date Wilfrid Mulligan MD [address] [place] [id number] PCP - General Internal Medicine 04/20/16
[2025-01-26 13:25] VITALS: BP 201/98; PULSE 79; RESP 16; TEMP 36.8; O2SAT 98
[2025-01-26 13:30] VITALS: BP 182/105; PULSE 74; RESP 16; TEMP 36.6; O2SAT 99
[2025-01-26 14:01] VITALS: BP 189/101; PULSE 80; RESP 16; TEMP 36.6; O2SAT 100
[2025-01-26 14:31] VITALS: BP 185/118; PULSE 82; RESP 16; O2SAT 100
--- NOTE | 2025-01-26 14:37 | ED.GENADULT ---
HPI - General Adult General Chief complaint: Wound/Laceration Stated complaint: back pain/scratch Time Seen by Provider: 01/26/25 13:13 History of Present Illness HPI narrative: 84-year-old female presents to the emergency department for evaluation for back pain and a wound on her back. Patient has a comedo that has some mild tenderness to palpation, patient states she did have a rash surrounding it that she had noticed in the mirror. Patient has no current rash. Patient reports she is allergic to the flu shot and patient has not received her shingles vaccine Related Data Home Medications ?Medication ?Instructions ?Recorded ?Confirmed ?Last Taken ?Type acetaminophen 300 mg-codeine 15 mg 1 tablet PO BID PRN Pain 02/25/20 02/28/20 Unknown History tablet metoprolol tartrate 25 mg tablet 25 mg PO QAM 02/25/20 02/28/20 02/28/20 07:30 History pantoprazole 40 mg tablet,delayed 40 mg PO QAM 02/25/20 02/28/20 02/24/20 History release Allergies Allergy/AdvReac Type Severity Reaction Status Date / Time No Known Allergies Allergy Verified 02/25/20 15:20 Review of Systems Review of Systems: All systems reviewed & are unremarkable except as noted in HPI and below PMFSH Past Medical History Medical History (Updated 01/26/25 @ 14:40 by Goldy Byrne MD) Osteoarthritis GERD (gastroesophageal reflux disease) Surgical History Surgical History (Updated 02/27/20 @ 10:51 by Faizan Gomez DO) History of hysterectomy Social History Social History Smoking status: Never smoker Second hand tobacco smoke exposure: No Alcohol intake: current Drinks per week: 7 Alcohol use details: 1/2 GLASS WINE NIGHTLY Substance use: never Living arrangements: with family Spiritual care concerns: No Exam Narrative: APPEARANCE: Well appearing, no pain, no distress, well-nourished. HEAD: normocephalic, atraumatic. EYES: PERRLA/EOMI, conjunctivae clear. NOSE: Normal no drainage EARS:TMS clear with good light reflex. THROAT: Pharynx clear, no exudate. NECK: Supple. No adenopathy, no masses. RESPIRATORY: Airway patent, respirations nonlabored. Clear to auscultation bilaterally, no rales, rhonchi, wheezing. CARDIOVASCULAR: Regular rate and rhythm without murmurs rubs or gallops. ABDOMINAL: Soft, nontender, nondistended, normal bowel sounds MUSCULOSKELETAL: Moves all extremities. Strength/ROM intact, No edema, No calf tenderness. NEURO: Alert. Cranial nerves II through XII intact. Good gait. Good coordination SKIN: comedo on right back with expression of sebum but no purulence Course Vital Signs Vital signs: Vital Signs Temperature 98.3 F 01/26/25 13:25 Pulse Rate 79 01/26/25 13:25 Respiratory Rate 16 01/26/25 13:25 Blood Pressure 201/98 H 01/26/25 13:25 Pulse Oximetry 98 01/26/25 13:25 Oxygen Delivery Room Air 01/26/25 13:25 Temperature 97.8 F 01/26/25 14:01 Pulse Rate 82 01/26/25 14:31 Respiratory Rate 16 01/26/25 14:31 Blood Pressure 185/118 H 01/26/25 14:31 Pulse Oximetry 100 01/26/25 14:31 Oxygen Delivery Room Air 01/26/25 13:25 Medical Decision Making MDM Narrative Medical decision making narrative: 84-year-old female presents emergency department for evaluation for a wound on her back, this wound does appear to be a comedone, no significant associated erythema but patient does have some tenderness to this. Sebum was expressed with no purulence. Patient is not up-to-date on her shingles vaccine. Patient does have some tenderness inferior to the comedone that she described as a burning pain but patient has no associated rash. Patient preferred not to be started on antivirals. Low concern for shingles at this time. Patient was encouraged of close follow-up with her primary care physician for a wound check to ensure that a shingles rash does not involved. Differential Diagnosis Differential Diagnosis: Comedone, abscess, shingles Vital Signs Vital Signs: Vital Signs Temperature 98.3 F 01/26/25 13:25 Pulse Rate 79 01/26/25 13:25 Respiratory Rate 16 01/26/25 13:25 Blood Pressure 201/98 H 01/26/25 13:25 Pulse Oximetry 98 01/26/25 13:25 Oxygen Delivery Room Air 01/26/25 13:25 Temperature 97.8 F 01/26/25 14:01 Pulse Rate 82 01/26/25 14:31 Respiratory Rate 16 01/26/25 14:31 Blood Pressure 185/118 H 01/26/25 14:31 Pulse Oximetry 100 01/26/25 14:31 Oxygen Delivery Room Air 01/26/25 13:25 Discharge Plan Discharge Clinical Impression: Ubaldo Patient Disposition: Home Condition: Stable Instructions: Antibiotic Form Additional Instructions: Have close follow-up with your primary care physician for a wound check. Antibiotic as directed until completed. Patient Language: Unknown Prescriptions: New sulfamethoxazole-trimethoprim [Bactrim DS] 800-160 mg tablet 1 tablet PO Q12H 7 Days Qty: 14 0RF No Action acetaminophen-codeine 300-15 mg Tablet 1 tablet PO BID PRN (Reason: Pain) pantoprazole 40 mg Tablet,Delayed Release (Dr/Ec) 40 mg PO QAM metoprolol tartrate 25 mg Tablet 25 mg PO QAM Follow-up/Referrals: Ese,MD Wilfrid [Primary Care Provider]
[2025-01-26] MEDS: SULFAMETHOXAZOLE/TRIMETHOPRIM 800/160 MG DS TABLET 1 TAB PO (14:47)
== END 2025-01-26 14:51 | disposition home or self-care (01) ==
PROVIDERS: Emergency Provider Emergency Medicine; PCP Internal Medicine Infectious Disease
DX: L70.0 Acne vulgaris (principal); M19.90 Unspecified osteoarthritis, unspecified site; K21.9 Gastro-esophageal reflux disease without esophagitis
CPT/HCPCS: 99283; A9270

== ENCOUNTER 2025-04-03 10:30 | Outpatient (RCR) | payer MEDICARE, SELFPAY ==
--- NOTE | 2025-03-18 11:54 | OTOPEVAL1 ---
Assessment and note entered by CARLOS Gonzalez/Crystal, CHT Evaluation Information Assessment Status Evaluation Diagnosis M65.30 Trigger finger, unspecified finger ICD-10 Condition Codes (OT) Pain in left hand M79.642 Subjective Information Patient reports pain in the left hand, specifically the middle finger and thumb for about 2 months. She notes that first thing in the morning the hand feels the worst. She reports the middle finger is stuck in flexion and she has to pull it straight. 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 She also reports weakness that limits her ability to hold her coffee cup. She is right handed. Reported Pain Level Pain Score 8/10 Self Report Additional Pain Score Comments Patient reports her hand pain is sharp in the morning and it gradually becomes more sore/achy throughout the day. Assessment OT Clinical Summary Patient referred to OT with left hand pain and signs and symptoms of left middle finger trigger finger with PIP in about 40 degrees of flexion at rest. After utilizing heat (paraffin) and soft tissue mobilization the patient's finger progressed to only 10 degrees of flexion. Patient was educated on active ROM/tendon glides, use of heat, massage, stretching, and splint schedule to facilitate reduced hand pain and improved functional hand use for ADLs. Plan of Care Interventions Therapeutic Exercise,Manual Therapy,Neuro Re- education,Therapeutic Activities,Hot Pack/Cold Pack,Check Out for Orthotic/Prosthetic,Ultrasound, Paraffin OT Services Indicated Yes Treatment Frequency and 2/week for 8 visits Duration These treatments will address the objective and functional deficits as defined above. The patient will be advanced safely and appropriately in order for the patient to progress towards his/her prior level of function. Additional exercises will be introduced and as well as a comprehensive home exercise program upon discharge, if needed, ?to ensure carryover of functional gains achieved in the clinic. This treatment plan has been reviewed and agreement upon by the patient.
--- NOTE | 2025-03-18 11:54 | OPREHPOC ---
Outpatient Therapy Plan of Care This is a Multidisciplinary Plan of Care that may contain components documented by all disciplines (PT, OT, and ST.) OT Problem 1 OT Problem #1 Knowledge Deficit OT Goal 1 Goal / Goal Update 1. Patient to be independent with instructed materials. Target Visit 8 OT Problem 2 OT Problem #2 Pain OT Goal 1 Goal / Goal Update 1. Patient to report reduced (L) hand pain to 0/10 at rest and no greater than 4/10 with ADLs. Target Visit 8 OT Problem 3 OT Problem #3 Impaired Flexibility OT Goal 1 Goal / Goal Update 1. Patient to increase functional flexibility of the left middle finger PIP joint to less than 10 deg. extension lag to improve functional tendon and joint mobility for ADLs. Target Visit 8 OT Problem 4 OT Problem #4 Impaired Strength OT Goal 1 Goal / Goal Update 1. 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 to increase funcitonal gripping for ADLs. Target Visit 8
--- NOTE | 2025-04-03 11:01 | OTOPDC ---
Assessment and note entered by Topher Cutler, CARLOS/Crystal, [facility] Assessment Status Discharge Diagnosis M65.30 Trigger finger, unspecified finger ICD-10 Condition Codes (OT) Pain in left hand M79.642 Subjective Information Patient reports, I'm doing really well. Better than I though I would be. The pain is gone. Patient reports her finger no longer triggers and she no longer is having pain. She reports progress with being able to rib bender with her left hand with no pain. She is able to rib bender and lift pots/pans. She does note that she continues to feel too weak to lift her cast iron skillet with just the left hand like she used to be able to do. 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 ROM Measurements: - At the start of care, patient's left middle finger PIP joint measured -40 deg. extension lag, this has resolved and her PIP is straight Strength: - Left rib bender strength from from 17 lbs. to 31 lbs. Reported Pain Level Pain Score 0: Self Report Assessment OT Clinical Summary Patient referred to OT with left hand pain and signs and symptoms of left middle finger trigger finger. She has made excellent progress with therapy, noting return of normal ROM of the middle finger. 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 She is no longer having pain with ADLs. Reviewed HEP today and recommending patient to continue HEP x4 weeks on her own to continue to build strength and maintain her flexibility. No further skilled OT indicated at this time. D/C OT. Plan of Care OT Services Indicated No
== END 2025-04-03 15:01 | disposition home or self-care (01) ==
LOC: ANHGOSHOT 10:30
PROVIDERS: PCP Internal Medicine Infectious Disease; Visit Provider Plastic Surgery
DX: M65.30 Trigger finger, unspecified finger (principal)
CPT/HCPCS: 97018; 97110; 97140; 97165